=== PATIENT | male | born 2000 | race Caucasian/White ===

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

== ENCOUNTER 2021-12-28 15:07 | Emergency (ER) | payer OTHER ==
[2021-12-28] MEDS ORDERED: POLYMYXIN B-TMP10 ML OP (16:52)
[2021-12-28] MEDS ORDERED: MEDROL DOSEPAK 24 MG PO (16:56)
== END 2021-12-28 17:07 | disposition home or self-care (01) ==
LOC: ER1 15:07
DX: H10.32 Unspecified acute conjunctivitis, left eye (principal)
CPT/HCPCS: 99283